=== PATIENT | female | born 1940 | race Caucasian/White ===

== ENCOUNTER 2019-11-16 12:36 | Inpatient (IN) ==
[2019-11-16] MEDS ORDERED: NALOXONE HCL 0.4 MG/1 ML VIAL/CARP IV PRN (15:06)
[2019-11-16] MEDS ORDERED: OXYCODONE HCL IR 5 MG TAB (IMMEDIATE RELEASE) PO PRN (15:06)
[2019-11-16] MEDS ORDERED: bisacodyL 10 MG SUPP PR PRN (15:06)
[2019-11-16] MEDS ORDERED: MoRPHine SULFATE 2 MG/ML CARP IV PRN (15:06)
[2019-11-16] MEDS ORDERED: MAGNESIUM HYDROXIDE SUSP 30 ML UDC PO PRN (15:06)
[2019-11-16] MEDS ORDERED: ONDANSETRON INJ 2 MG/ML 2 ML VIAL IV PRN (15:06)
--- NOTE | 2019-11-16 15:13 | History & Physical Report ---
Date of Service November 16, 2019 Assessment & Plan (1) Hip fracture, left: - Admit to med surg - Check cbc, prp, coags now - Pt was seen in Dr. Marroquin office earlier today where imaging was conducted, ortho has been formally consulted for plans for OR tomorrow. Pt has been walking on the fracture for the past week. - Pain control with tylenol around the clock, IV morphine sulfate 2-4 mg prn, bowel regimen in place - Denies hx of dvt/pe - start anticoagulation after surgical procedure - PT/OT after surgery - Allow diet for now, NPO after midnight - Clindamycin IV preop with allergy to penicillin and sulfas - IVFs at 100 ml/hr overnight for maintenance fluids. - Allow lose dose ativan for anxiety as pt has been through significant social circumstances regarding loss of her pet in the past week. (2) Scoliosis: - Hx of such, hx of thoracic fusion at age 15 but no other issues. (3) Mitral valve prolapse: - No medications, faint murmur heard on exam. - Check echo prior to surgical procedure - Check EKG now for preop clearance (4) Hematochezia: - hx of intermittent passing of dark red clot with bowels as per history, checking guiac, follow H&H. - Consider GI consultation, she denies ever having a colonoscopy even for routine screening. (5) DVT prophylaxis: -teds, scds, no chemical ppx in anticipation of surgery tomorrow CODE: Full Dispo: From home, likely will remain here through the weekend. History of Present Illness Primary Care Provider: Taras Bustamante, III, ANAHI This is a 79 yo F with PMHx of mitral valve prolapse, vertigo and scoliosis who presents to [facility] as a direct admission from Dr. Marroquin's office this morning for a Left hip fracture. The patient notes that she fell 7 days ago, and has been functioning at home with the pain and using tylenol routinely. Over the pt had family to visit, when he son arrived home he also brought his dog, who upon entering the home, immediately attacked one of her pet cats. The inciting event occurred on 11/09/19 after springing out of bed to answer the wad lubricator phone call around 5:30am last Tuesday regarding the cat which had not survived the attack, where she acutely became dizzy and fell to the ground. She reports this was exactly like previous episodes of vertigo. She does not take any medications for vertigo, and reports she can normally control it if she just takes a moment to allow the spinning sensation to stop, and then can go about her day. She denies any LOC, hitting her head, or sustaining other injuries. She has been using a walker in her house since the fall to assist her, but prior to this did not require any ambulatory device. she reports her last BM was yesterday but notes that she occasionally sees dark bloody clot pass. She denies BRBPR or other changes in stool. She cannot quantify the a mount of blood, this but describes this as occurring as frequent as 1-2x per week. She denies pain with passing bowels and does not need to strain. BM occur every 2-3 days on average for her. She has had a poor appetite in the past week. Pt denies n/v/d/c. She does not take any other medication routinely, and denies significant PMHx other than stated above. She drinks a glass of wine occasionally, and has never smoked. Allergies Allergy/AdvReac Type Severity Reaction Status Date / Time Penicillins Allergy Unknown hives and Verified 01/23/15 08:59 swelling Sulfa (Sulfonamide Allergy Unknown hives Verified 01/23/15 08:59 Antibiotics) Home Medications Home Medications Medication Instructions Recorded Confirmed Type acetaminophen [Tylenol Extra 500 mg PO Q6H PRN 11/16/19 11/16/19 History Strength] Past Med/Surg History Social History (Updated 11/16/19 @ 15:19 by Eleonora Vaca PA-C) Preferred Language: Setswana Communication Ability: Effective Painter Hand Required: No Beliefs That Will Affect Care: None Current Living Situation: Spouse current occupational status: retired Other Information That Helps Us Care for You: No Feels Safe at Home: Yes Safety Concerns: Feels Safe At This Time Smoking Status: Never smoker Do You Dip or Chew Tobacco: No ; Second Hand Exposure: No ; Tobacco Cessation Education Requested by Patient: No Hx Alcohol Use: Yes Alcohol type: wine Alcohol Intake Frequency: Rarely Hx Substance Use: No Review of Systems Review of Systems: Constitutional: No fever, sweats or chills Eyes: No diplopia, no worsening or blurred vision ENT: normal hearing, no trouble swallowing Respiratory: No cough, sputum, dyspnea at rest or on exertion Cardiovascular: No chest pain, tightness or palpitations Abdomen: +occasional dark clot as per HPI, No pain, nausea, vomiting, diarrhea or constipation Musculoskeletal: + left joint pain, no calf pain, chronic left knee swelling Neurologic: No weakness, numbness/tingling, or balance problems, has been using a walker as per HPI. Psychiatric: No anxiety or depression Skin: No rash or itch Physical Exam Physical Exam: General: awake, alert, no apparent distress, +thin Head: Normocephalic, atraumatic ENT: PERRL, EOMI, no pharyngeal exudate, mucous membranes moist Chest: Clear to auscultation, on room air, no adventitious breath sounds Cardiac: Regular rate and rhythm, no murmur, no JVD, normal peripheral pulses, good capillary refill Abdominal: NABS x 4 quadrants, soft, nontender to palpation, no rebound, guarding or tenderness Extremities: Normal inspection, + left knee edema(pt reports as chronic), + diff iculty moving the left leg without pain, otherwise no peripheral edema or erythema, calfs nontender to palpation Psych: Normal mood and affect Neuro: AAO x 3, no gross motor deficits, speech is clear, no peripheral sensory deficits Code Status & VTE Plan Code Status FULL Supervising Physician Co-Signing Physician Notes Patient seen and examined, chart reviewed, case discussed with HARSHAD Vaca and I agree with her assessment and plan as documented above. Briefly, patient is a 79yo C female presenting with mildly displaced left femoral neck fracture sustained after a mechanical fall on 11/09/19. On exam she is afebrile, HD stable, anxious in appearance. HEENT - NC/AT, PERRL, EOMI, MMM Heart - +S1/S2, regular, no m/r/g Lungs - CTA Abd - +BS, soft, NT/ND Ext - LLE under pillow, neurovascularly intact Labs and images reviewed. Assessment/Plan - 79yo C female s/p left femoral neck fracture after mechanical fall one week ago -Plan for OR tomorrow -Remainder of plan as above -Will add Hydroxyzine 25mg po qHS PRN - patient reports some insomnia as well as feelings of anxiety. Hopefully this medication will address both issues. PG Care Time/CCT Total # of Minutes Spent Total Time Spent with Patient: Total time spent is greater than 50% in coordination of care (as documented) at patient's floor/unit and/or counseling patient:
[2019-11-16 16:58] LABS: Basophils # (auto) 0.02 K/uL (0-0.2); Basophils % (auto) 0.2 %; Eosinophils # (auto) 0.03 K/uL (0-0.5); Eosinophils % (auto) 0.3 %; Hematocrit (blood only) 39.5 % (37-47); Hemoglobin 13.5 g/dL (12.0-16.0); Immature Granulocytes # (auto) 0.03 K/uL (0.00-0.02); Immature Granulocytes % (auto) 0.3 %; Lymphocytes # (auto) 1.31 K/uL (1.2-3.4); Lymphocytes % (auto) 14.4 %; Mean Corpuscular Hemoglobin 29.9 pg (25-34); Mean Corpuscular Volume 87.6 fL (80-100); Mean Platelet Volume 9.2 fL (7.4-10.4); Monocytes # (auto) 0.77 K/uL (0.11-0.59); Monocytes % (auto) 8.5 %; Neutrophils # (auto) 6.91 K/uL (1.4-6.5); Neutrophils % (auto) 76.3 %; Platelet Count 245 K/uL (130-400); RDW Coefficient of Variation 13.8 % (11.5-14.5); RDW Standard Deviation 44.3 fL (36.4-46.3); Red Blood Count 4.51 M/uL (4.2-5.4); White Blood Count 9.07 K/uL (4.8-10.8)
[2019-11-16 17:06] LABS: Mean Corpuscular Hgb Conc 34.2 g/dL (32-36)
[2019-11-16 17:07] LABS: Prothrombin Time 10.6 Seconds (9.0-12.0)
[2019-11-16 17:17] LABS: Albumin Level 3.7 gm/dl (3.4-5.0); BUN Creatinine Ratio 20.1 (10-20); Calcium 9.3 mg/dl (8.5-10.1); Creatinine Clr Calc Pharmacy 70.1 ml/min; Est GFR (Non-African American) 88.9; Potassium 3.6 mmol/L (3.5-5.1)
[2019-11-16 17:19] LABS: Bilirubin,Total 0.3 mg/dl (0.2-1); Globulin 3.7 gm/dl (2.5-4.0); Total Protein 7.4 gm/dl (6.4-8.2)
[2019-11-16] MEDS: LORazepam 0.5 MG TAB PO PRN (17:59)
[2019-11-16] MEDS: MoRPHine SULFATE 4 MG/ML 1 ML CARP\\VIAL IV PRN (21:03)
[2019-11-16] MEDS: DOCUSATE SODIUM/SENNA 50/8.6MG TAB PO SCH (21:03)
--- NOTE | 2019-11-16 22:02 | XRay Report ---
XR femur LT 2V routine CLINICAL HISTORY: left hip fracture COMPARISON STUDY: Pelvis 02/10/2015. FINDINGS: There is a slightly impacted and displace subcapital fracture of the left femoral neck. No dislocation. The visualized pelvic bones are intact. Calcifications in the deep pelvis likely represe nt uterine fibroids. There is mild osteoarthritis within the left hip. Ddla-[id number] osteoarthriti s within the left knee. The mid to distal left femur appears intact. The femoral neck fracture demons trates up to 7 mm of superior displacement. This also demonstrates 7 mm of posterior displacement. IMPRESSION: Mildly displaced left femoral neck fracture. The mid to distal left femur is intact. ACT 112: Negative or not required by law. Electronically signed by: Mario Milian M.D. 11/16/2019 10:01 PM
[2019-11-16] MEDS: SODIUM CHLORIDE 0.9% 1000ML 1,000 ML IV SCH (23:15)
[2019-11-17] MEDS: MoRPHine SULFATE 4 MG/ML 1 ML CARP\\VIAL IV PRN ×3 (01:22→11:02)
[2019-11-17 05:47] LABS: Hematocrit (blood only) 37.2 % (37-47); Hemoglobin 12.2 g/dL (12.0-16.0); Mean Corpuscular Hemoglobin 29.8 pg (25-34); Mean Corpuscular Hgb Conc 32.8 g/dL (32-36); Mean Corpuscular Volume 90.7 fL (80-100); Platelet Count 228 K/uL (130-400); RDW Coefficient of Variation 13.7 % (11.5-14.5); RDW Standard Deviation 45.6 fL (36.4-46.3)
[2019-11-17] MEDS ORDERED: CLINDAMYCIN 900 MG in DEXTROSE 5% 50 ML IV SCH (06:00)
[2019-11-17 06:08] LABS: INR 1.1 (0.9-1.1)
[2019-11-17 06:12] LABS: Albumin Level 3.3 gm/dl (3.4-5.0); BUN Creatinine Ratio 18.4 (10-20); Creatinine Clr Calc Pharmacy 63.6 ml/min; Est GFR (African American) 99.8; Est GFR (Non-African American) 86.1; Potassium 3.9 mmol/L (3.5-5.1)
[2019-11-17 06:15] LABS: Bilirubin,Total 0.5 mg/dl (0.2-1); Globulin 3.2 gm/dl (2.5-4.0); Total Protein 6.5 gm/dl (6.4-8.2)
--- NOTE | 2019-11-17 07:52 | Electrocardiogram Report ---
Test Reason : Blood Pressure : / mmHG Vent. Rate : 076 BPM Atrial Rate : 076 BPM P-R Int : 190 ms QRS Dur : 090 ms QT Int : 388 ms P-R-T Axes : 073 039 050 degrees QTc Int : 436 ms Normal sinus rhythm with sinus arrhythmia Incomplete right bundle branch block Borderline ECG When compared with ECG of 23-JAN-2015 10:11, No significant change was found Confirmed by Reyes Thomas ([id number]) on 11/17/2019 7:51:55 AM Referred By: Barney Marroquin Confirmed By:Johny Thomas
[2019-11-17] MEDS: bisacodyL 5 MG TABEC PO SCH (09:41)
--- NOTE | 2019-11-17 10:56 | Orthopedic Consultation ---
Date of Consultation November 17, 2019 Assessment & Plan (1) Left displaced femoral neck fracture: The patient is a 72-year-old female with displaced left subcapital femoral neck fracture sustained after a fall from standing height 1 week prior. The patient was medically stabilized on 11/17/2019. I indicated the patient for left total hip arthroplasty. The patient was informed of the risks and benefits of surgery, which include but not limited to infection, bleeding, blood clots, damage to nerves, vessels, bone and soft tissue, dislocation, leg length discrepancy, need for additional surgery and . The patient and family collectively chose to move forward with surgical intervention and informed consent was obtained. History of Present Illness Reason for Consultation: Left hip fracture Attending Physician: Kenrick Hodge History of Present Illness The patient is a 79-year-old female with a past medical history for mitral valve prolapse presented to [facility] office on 11/16/2019 with complaints of acute traumatic left hip pain. Had reports of a fall 7 days prior to office visit. Patient reports difficulty ambulating however managing with assistive device/walker, x- rays taken at the office demonstrated a displaced subcapital femoral neck fracture. The patient was sent directly to [facility] for direct admission and further surgical intervention at this time. Patient denied any associated injuries, denied hitting her head or loss of consciousness. Denies any numbness and tingling down her left lower extremity. The patient is a relatively active 79-year-old. Allergies Allergy/AdvReac Type Severity Reaction Status Date / Time Penicillins Allergy Unknown hives and Verified 01/23/15 08:59 swelling Sulfa (Sulfonamide Allergy Unknown hives Verified 01/23/15 08:59 Antibiotics) Home Medications Home Medications Medication Instructions Recorded Confirmed Type acetaminophen [Tylenol Extra 500 mg PO Q6H PRN 11/16/19 11/16/19 History Strength] Patient History Medical History (Updated 11/17/19 @ 11:52 by Acosta Chowdary MD) History of ASCVD Social History Preferred Language: Citizen Of [place] Communication Ability: Effective Mechanical Insulator Required: No Beliefs That Will Affect Care: None Current Living Situation: Spouse current occupational status: retired Other Information That Helps Us Care for You: No Feels Safe at Home: Yes Safety Concerns: Feels Safe At This Time Smoking Status: Never smoker Do You Dip or Chew Tobacco: No ; Second Hand Exposure: No ; Tobacco Cessation Education Requested by Patient: No Hx Alcohol Use: Yes Alcohol type: wine Alcohol Intake Frequency: Rarely Hx Substance Use: No Review of Systems Review of Systems: All systems reviewed & are unremarkable except as noted in HPI & below Constitutional: as per Subjective / HPI Physical Exam Physical Exam: LLE NVSI +EHL/FHL/TA/GS SILT grossly, +2 DP pulse, compartments soft NT, limited painful range of motion of left hip. Left lower extremity shortened and externally rotated. Constitutional: WD/WN, vitals as above Results & Data Vital Signs (Past 12 Hours) Vital Signs Temp Pulse Resp BP Pulse Ox 11/17/19 07:14 36.7 C 72 16 159/86 H 91 11/17/19 00:13 36.9 C 86 16 144/82 H 93 Diagnostic Findings XR femur LT 2V routine CLINICAL HISTORY: left hip fracture COMPARISON STUDY: Pelvis 02/10/2015. FINDINGS: There is a slightly impacted and displace subcapital fracture of the left femoral neck. No dislocation. The visualized pelvic bones are intact. Calcifications in the deep pelvis likely represent uterine fibroids. There is mild osteoarthritis within the left hip. Sidl-jy-[id number] osteoarthritis within the left knee. The mid to distal left femur appears intact. The femoral neck fracture demonstrates up to 7 mm of superior displacement. This also demonstrates 7 mm of posterior displacement. IMPRESSION: Mildly displaced left femoral neck fracture. The mid to distal left femur is intact.
[2019-11-17] MEDS: SODIUM CHLORIDE 0.9% 1000ML 1,000 ML IV SCH (11:13)
--- NOTE | 2019-11-17 11:55 | Anesthesiology Consultation ---
Date of Service November 17, 2019 Assessment & Plan (1) Mitral valve prolapse: (2) History of thoracic spinal fusion: (3) Depression: Chart Review Chart Review: Acceptable Risk for Surgery and Patient NOT seen in Pre Admission Testing Consults Requested none ASA ASA3 Proposed Anesthesia Anesthesia Type: General and MAC Spinal History Surgery Operation Date: 11/17/19 12:00 Proposed Procedures p Left Total Hip Arthroplasty - aBrney Marroquin DO Height/Weight Height: 5 ft 7 in Weight: 54.7 kg Allergies Allergy/AdvReac Type Severity Reaction Status Date / Time Penicillins Allergy Unknown hives and Verified 01/23/15 08:59 swelling Sulfa (Sulfonamide Allergy Unknown hives Verified 01/23/15 08:59 Antibiotics) Medications Home Medications Medication Instructions Recorded Confirmed Last Taken acetaminophen [Tylenol Extra 500 mg PO Q6H PRN 11/16/19 11/16/19 Unknown Strength] Active Medications Generic Name Dose Route Start Last Admin Trade Name Freq PRN Reason Stop Dose Admin Bisacodyl 5 mg 11/17/19 09:00 11/17/19 09:41 Dulcolax PO 12/17/19 08:59 Not Given DAILY ADE Hydroxyzine HCl 25 mg 11/16/19 23:04 11/17/19 00:12 Vistaril PO 12/16/19 23:03 25 mg HS PRN Administration Insomnia Clindamycin Phosphate 900 mg/ 56 mls @ 112 mls/hr 11/17/19 06:00 11/17/19 06:11 Dextrose IV 11/17/19 18:00 Infused PREOP ADE Infusion Sodium Chloride 1,000 mls @ 80 mls/hr 11/17/19 00:00 11/17/19 11:13 Nss 1000ml IV 11/17/19 23:59 80 mls/hr .[id number] ADE Administration Lorazepam 0.5 mg 11/16/19 15:51 11/16/19 17:59 Ativan PO 12/16/19 15:50 0.5 mg BID PRN Administration Anxiety Morphine Sulfate 4 mg 11/16/19 15:06 11/17/19 11:02 Morphine Sulfate IV 11/30/19 15:05 4 mg Q2H PRN Administration Pain Oxycodone HCl 5 mg 11/16/19 15:06 11/16/19 15:41 Roxicodone Immediate Rel PO 11/30/19 15:05 5 mg Q4H PRN Administration MODERATE Pain (Scale 4,5,6) Senna/Docusate Sodium 2 tab 11/16/19 21:00 11/16/19 21:03 Senokot S PO 12/16/19 20:59 2 tab HS ADE Administration Past Medical History Medical History (Updated 11/17/19 @ 11:52 by Acosta Chowdary MD) History of ASCVD Exercise / Class Metabolic Activity III < 4 Walking/Shop/Light housework Past Anesthesia History No Hx of Anesthesia Complications and No Family Hx of Anesthesia Complications History of PONV No Hx of PONV and No Hx of Motion Sickness Social History Smoking Status: Never smoker Do You Dip or Chew Tobacco: No Hx Alcohol Use: Yes Alcohol type: wine alcohol intake frequency: a few times a week Alcohol Intake Frequency Comment: 1 to 3 a week Hx Substance Use: No substance use type: does not use Physical Exam Vital Signs Last Vital Signs Temp 36.7 C 11/17/19 07:14 Pulse 72 11/17/19 07:14 Resp 16 11/17/19 07:14 BP 159/86 H 11/17/19 07:14 Pulse Ox 91 11/17/19 07:14 Testing Laboratory Results 11/17/19 05:17 11/17/19 05:17 PT 11.0 Seconds (9.0-12.0) 11/17/19 05:17 INR 1.1 (0.9-1.1) 11/17/19 05:17 Blood Type A Negative 11/16/19 16:39 Antibody Screen NEGATIVE 11/16/19 16:39 Electrocardiogram Date: 11/16/19 Findings: + NSR @ (at 78 w/ sinus arrhythmia) and + RBBB (IRBBB) Echocardiogram Date: 11/16/19 EF: 60 LV Function: normal RWMA: + none Valvular Disease: + AI (mild)
[2019-11-17] MEDS ORDERED: ROPIVACAINE 0.5% HCL/PF 150 MG, BUPIVACAINE 0.5% MPF 30 ML, EPINEPHrine 30MG/30ML (OR U... INFIL SCH (12:00)
[2019-11-17] MEDS ORDERED: BUPIVACAINE 0.5 % 5 MG/1 ML PF 10ML VIAL ONE (12:23)
[2019-11-17] MEDS ORDERED: MIDAZOLAM HCL 1 MG/ML 2ML VIAL ONE (12:30)
[2019-11-17] MEDS ORDERED: fentaNYL citrate 100 MCG/2 ML VIAL ONE ×4 (12:32→16:05)
[2019-11-17] MEDS ORDERED: LIDOCAINE HCL 2% 2 ML VIAL/AMP(20MG/ML) INFIL ONE (12:33)
[2019-11-17] MEDS ORDERED: PROPOFOL IV EMULSION 10 MG/ML 20 ML VIAL IV ONE (12:33)
[2019-11-17] MEDS ORDERED: BACITRACIN INJ 50,000 UNIT VIAL ONE (12:43)
[2019-11-17] MEDS ORDERED: ORTHO JOINT ANESTHETIC ONE (12:43)
--- NOTE | 2019-11-17 12:56 | History & Physical Bridge Note ---
Date of Service November 17, 2019 History & Physical Bridge Note I have examined the patient, reviewed the History & Physical and in the interval since the performance of the History & Physical I have noted the following changes of clinical significance: no changes noted
--- NOTE | 2019-11-17 13:00 | Orthopedic Progress Note ---
Date of Service November 17, 2019 Assessment & Plan (1) Left displaced femoral neck fracture: The patient is a 72-year-old femur with displaced left subcapital femoral neck fracture sustained after a fall from standing height 1 week prior. The patient was medically stabilized on 11/17/2019. I indicated the patient for left total hip arthroplasty. The patient was informed of the risks and benefits of surgery, which include but not limited to infection, bleeding, blood clots, damage to nerves, vessels, bone and soft tissue, dislocation, leg length discrepancy, need for additional surgery and . The patient chose to move forward with surgical intervention and informed consent was obtained. Subjective Patient seen and preoperative holding, comfortable, pain well controlled, no acute issues overnight, denies fevers, chills, nausea, vomiting, diarrhea, shortness of breath and chest pain. Review of Systems Review of Systems: All systems reviewed & are unremarkable except as noted in HPI & below Constitutional: as per Subjective / HPI Physical Exam Physical Exam: LLE NVSI +EHL/FHL/TA/GS SILT grossly, +2 DP pulse, compartments soft NT, short and externally rotated. Constitutional: WD/WN, vitals as above Results & Data Vital Signs (Past 12 Hours) Vital Signs Temp Pulse Resp BP Pulse Ox 11/17/19 07:14 36.7 C 72 16 159/86 H 91
[2019-11-17] MEDS ORDERED: CLINDAMYCIN PHOS 300 MG/2 ML VIAL ONE (13:07)
[2019-11-17] MEDS ORDERED: ROCURONIUM BROMIDE 10 MG/ML 5 ML VIAL ONE (13:56)
[2019-11-17] MEDS ORDERED: DEXAMETHASONE SOD INJ 4 MG/ML VIAL ONE (14:00)
[2019-11-17] MEDS ORDERED: ONDANSETRON INJ 2 MG/ML 2 ML VIAL ONE (14:00)
[2019-11-17] MEDS ORDERED: ePHEDrine sulfate 50 MG/ML SYR ONE (14:23)
[2019-11-17] MEDS ORDERED: NEOSTIGMINE METHYLSULFATE 5 MG/5 ML SYR ONE (14:52)
[2019-11-17] MEDS ORDERED: GLYCOPYRROLATE 0.2 MG/ML VIAL ONE (14:52)
--- NOTE | 2019-11-17 15:23 | Post Operative Brief Note ---
Immediate Post Op Note v1 Date of Surgery November 17, 2019 Pre & Post Diagnosis Operation Date: 11/17/19 12:00 Pre-Op Diagnosis: Left hip fracture Post-Op Diagnosis: Left hip fracture I identified the patient and participated in the time-out.: Yes Procedure Operation Date: 11/17/19 12:00 Actual Procedures p Left Total Hip Arthroplasty, Uncemented(Left) - Barney Marroquin DO Surgeon Barney Marroquin DO Diather[employer] Equipment Repairer Lm Gillis Estimated Blood Loss 175 Findings Consistent with Post-Op Diagnosis Fluids 1000 cc LR Specimens femoral head Anesthesia Type General Complications none Disposition Disposition: Recovery Room Overlapping Procedure I was present for: the critical portions of procedure. I was immediately available: during the entire case. Back up surgeon: was not required during procedure.
--- NOTE | 2019-11-17 15:27 | Operative Report ---
Post Operative Report Pre & Post Diagnosis Operation Date: 11/17/19 12:00 Pre-Op Diagnosis: Left hip fracture Post-Op Diagnosis: Left hip fracture I identified the patient and participated in the time-out.: Yes Procedure Operation Date: 11/17/19 12:00 Actual Procedures p Left Total Hip Arthroplasty, Uncemented(Left) - Barney Marroquin DO Surgeon Barney Marroquin, Architectural Practice Manager Jonathan Gillis Estimated Blood Loss 175 Findings Consistent with Post-Op Diagnosis Fluids 1000 cc LR Specimens Femoral head Anesthesia Type General Complications none Disposition Disposition: Recovery Room Indications The patient is a 79-year-old female with a past medical history for mitral valve prolapse presented to [facility] office on 11/16/2019 with complaints of acute traumatic left hip pain. Had reports of a fall 7 days prior to office visit. Patient reports difficulty ambulating however managing with assistive device/walker, x- rays taken at the office demonstrated a displaced subcapital femoral neck fracture. The patient was sent directly to [facility] for direct admission and further surgical intervention at this time. Patient denied any associated injuries, denied hitting her head or loss of consciousness. Denies any numbness and tingling down her left lower extremity. The patient is a relatively active 79-year-old. The patient was medically stabilized on 11/17/2019. I indicated the patient for left total hip arthroplasty. The patient was informed of the risks and benefits of surgery, which include but not limited to infection, bleeding, blood clots, damage to nerves, vessels, bone and soft tissue, dislocation, leg length discrepancy, need for additional surgery and . The patient and family collectively chose to move forward with surgical intervention and informed consent was obtained. Description of Procedure COMPONENTS USED: Ivana Biomet hip system: Acetabulum size 50, femur size 10 extended offset, femoral head 36-3.5, liner 5036, acetabular screw 25 mm x 1. Following induction of adequate spinal anesthesia, the patient was transferred to the OR table and placed in lateral decubitus position with right hip down. The left hip was prepped and draped in the typical sterile fashion. A timeout was performed, patient identified and site jonathan confirmed. Appropriate antibiotics were given. A standard posterolateral/William-Langenbeck incision was made. Subcutaneous tissue was sharply dissected. Electrocautery was utilized for hemostasis. The fascia was incised throughout the length of the wound and retracted with the Charnley retractor. The bursa was taken down and the short external rotators were identified. The piriformis was tagged with #1 Vicryl. The short external rotators and capsule were divided from the posterior aspect of the femur using electrocautery. The posterior capsule was tagged with #1 Vicryl. Both external rotators and posterior capsule were swept posterior and protected, along with protecting the sciatic nerve. The femoral neck fracture was identified and the fracture site exaggerated with flexion and internal rotation of the hip. Once we gained adequate exposure to the femoral neck a femoral cutting guide was utilized for making the appropriate level femoral neck cut with reciprocating saw. Next ,the femoral head was removed, measured and reserved on the back table. Next, attention was turned to the acetabulum. A posterior and anterior offset retractor was placed to gain adequate exposure. Acetabular labrum as well as posterior capsule elements were removed using electrocautery and forceps. Fovea centralis was cleared of all soft tissue. Sequential reaming was performed starting at 44 mm and carried up to a 40 mm and decision was made to proceed with impaction of a 50 mm G7 osteoti cup. This was impacted and held using a single 25 mm bone screw. The trial acetabular liner was placed at this time. Next, attention was turned to the proximal femur where a Bovie and pickup was used to further clear short external rotators from their insertion on the femur. Box osteotome and canal finder was used to gain access to the femoral canal and the lateral reamer on power was used to further open the proximal lateral canal. Sequentially rasping was carried up to a 10 which gave good fit and fill of the proximal femur. A trial reduction was carried out with a extended offset femoral neck component a -3.5 mm femoral head. The trial reduction was stable in all degrees of rotation with no [id number] impingement. The hip was dislocated, trial components were removed and access to the acetabulum was re-established. The trial liner was removed and the cup was irrigated to ensure all debris was removed. The final acetabular liner was inserted and properly seated in the cup. Access to the femur was once more gained and the size 10 femoral stem with extended offset was impacted into position. The hip was once more assessed with the 36-3.5 mm femoral head. Stability was accessed and found to be excellent with equal leg lengths. The hip was dislocated for the last time and the final 36-3.5 ceramic femoral head was impacted in place and the hip was reduced. Range of motion was checked once again and found to be stable. A Betadine soak was performed. After 3 minutes, the hip was once more irrigated with copious sterile saline solution with bacitracin. The mayo-incisional soft tissue was injected utilizing [place] ortho mix which includes a combination of Ropivicaine 0.5% 150mg, Bupivicaine 0.5%/Epinephrine 1:200,000 30ml, Toradol 30mg, Dexamethasone 4mg, Ketamine 10mg, Clonidine 100mcg and NSS 30ml Orthomix solution. The piriformis, external rotators and capsule were repaired to the greater trochanter through bone tunnels using #5 FiberWire. The fascia was closed using #1 Vicryl, subcutaneous tissue was closed using 2-0 Vicryl, and skin was closed with coby. Sterile dressings were applied which included Silverlon dressing. The patient tolerated the procedure well and was transported to PACU in stable condition. Due to the complex nature of the procedure, the entire surgery was performed with the operational assistance of Jonathan Gillis PA-C. The assistant maintenance manager, under direct supervision, was involved in the actual performance of all aspects of the surgical procedure including patient positioning, hemostasis, tissue retraction, instrument management and wound closure. I attest to the content of the Intraoperative Record and any orders documented therein. Any exceptions are noted below.
--- NOTE | 2019-11-17 15:54 | Orthopedic Progress Note ---
Date of Service November 17, 2019 Assessment & Plan (1) Left displaced femoral neck fracture: Status post left total hip arthroplasty for fracture -Clinda x24 -DVT prophylaxis: SCDs, teds, Lovenox 30 mg daily -Weight-bear as tolerated left lower extremity -PT/OT when medically stable -Postoperative x-ray pending -A.m. lab Subjective Patient seen in PACU, still feeling effects of general anesthesia, arousable, pain well controlled, no acute issues. Review of Systems Review of Systems: All systems reviewed & are unremarkable except as noted in HPI & below Constitutional: as per Subjective / HPI Physical Exam Physical Exam: LLE NVSI +EHL/FHL/TA/GS SILT grossly, +2 DP pulse, compartments soft NT, dressing cdi. Abduction pillow in place. Constitutional: WD/WN, vitals as above Results & Data Vital Signs (Past 12 Hours) Vital Signs Temp Pulse Resp BP Pulse Ox 11/17/19 07:14 36.7 C 72 16 159/86 H 91
[2019-11-17] MEDS ORDERED: ATROPINE SULFATE 0.1 MG/ML 10ML SYR IV PRN (15:57)
[2019-11-17] MEDS ORDERED: NALOXONE HCL 0.4 MG/1 ML VIAL/CARP IV PRN ×2 (15:57→17:03)
[2019-11-17] MEDS ORDERED: LABETALOL HCL IV 5 MG/ML 20ML IV PRN (15:57)
[2019-11-17] MEDS ORDERED: ONDANSETRON INJ 2 MG/ML 2 ML VIAL IV PRN ×2 (15:57→17:03)
[2019-11-17] MEDS ORDERED: PROMETHAZINE HCL 12.5 MG in SODIUM CHLORIDE 0.9% 50 ML IV PRN (15:57)
[2019-11-17] MEDS ORDERED: FLUMAZENIL 0.1 MG/1 ML 10 ML VIAL IV PRN (15:57)
[2019-11-17] MEDS ORDERED: ePHEDrine sulfate 50 MG/ML AMP IV PRN (15:57)
[2019-11-17] MEDS: fentaNYL citrate 100 MCG/2 ML VIAL IV PRN ×2 (16:05→16:10)
--- NOTE | 2019-11-17 16:31 | Anesthesiology Progress Note ---
Date of Service November 17, 2019 Anesthesia Post Procedure Vital Signs Vital Signs: Temp Pulse Pulse Resp BP Pulse Ox 11/17/19 16:25 36.6 C 82 16 146/82 H 97 11/17/19 16:15 81 17 142/74 H 98 11/17/19 16:05 92 H 18 141/79 H 97 11/17/19 15:55 77 15 127/74 100 11/17/19 15:49 36.5 C 86 16 127/77 100 11/17/19 07:14 36.7 C 72 16 159/86 H 91 11/17/19 00:13 36.9 C 86 16 144/82 H 93 11/16/19 18:00 96 H 164/82 H Pain Intensity Left Hip: Pain Intensity: 4 Transfer of Care Handoff Completed per policy Notes Mental Status: alert / awake / arousable Patient Amnestic to Procedure: Yes Nausea / Vomiting: adequately controlled Pain: adequately controlled Airway Patency, RR, SpO2: stable & adequate BP & HR: stable & adequate Hydration State: stable & adequate Anesthetic Complications: no major complications apparent
--- NOTE | 2019-11-17 16:46 | XRay Report ---
AP PELVIS, CROSSTABLE LATERAL LEFT HIP History: Left total hip arthroplasty. Left hip fracture. Postop. FINDINGS: The patient is status post a left total hip arthroplasty. The hardware is intact. No fractu re or dislocation. Skin coby are in place. IMPRESSION: Left total hip arthroplasty. No evidence for hardware complication. ACT 112: Negative or not required by law. Electronically signed by: aMrio Milian M.D. 11/17/2019 4:45 PM
[2019-11-17] MEDS ORDERED: MAGNESIUM HYDROXIDE SUSP 30 ML UDC PO PRN (17:03)
[2019-11-17] MEDS ORDERED: bisacodyL 10 MG SUPP PR PRN (17:03)
[2019-11-17] MEDS ORDERED: HYDROmorphone INJ 0.5 MG/0.5 ML SYR IV PRN (17:03)
[2019-11-17] MEDS ORDERED: METOCLOPRAMIDE HCL INJ 5 MG/ML 2 ML VIAL IV PRN (17:03)
--- NOTE | 2019-11-17 17:24 | Hospitalist Progress Note ---
Date of Service November 17, 2019 Assessment & Plan (1) Hip fracture, left: * Occurred 7 days ago following episode of vertigo with fall from standing height when standing quickly. Imaging with displaced left subcapital femoral neck fracture sustained after a fall from standing * POD#0 s/p LEFT TKA with Dr. Marroquin. EBL 175mL. * Pre-op h/h 12.2/37.2. INR 1.1. * PT/OT/CM * Monitor CBC in AM * Lovenox SQ for DVT prophylaxis post operatively * Ativan prn anxiety given recent loss of animal in the past week (2) Scoliosis: * Hx of such, hx of thoracic fusion at age 15 but no other issues. (3) Mitral valve prolapse: * H/o. No medications -- faint murmur heard on exam. * ECHO with normal LV size and wall thickness, LVEF 60-65%, normal RV size and function. Trace MR. Mild AR. Normal estimated CVP * MATEUS NSR with sinus arrhthmia, incomplete RBBB, 76bpm -- unchanged from MATEUS January 2015 (4) Hematochezia: * hx of intermittent passing of dark red clot with bowels as per history. No history of colonoscopy or FIT testing * fecal occult to be collected * monitor h/h -- currently stable at 12.2/37.2 * Monitor CBC * If + fecal occult-- consider GI consultation (5) DVT prophylaxis: * teds, scds * Initiated lovenox following surgery Dispo: From home, likely will remain here through the weekend. (6) Insomnia: Supervising Physician Co-Signing Physician Notes Attending Attestation: Chart reviewed in detail, care plan d/w HARSHAD Domínguez. I agree w/ the reid components of her documentation except she had ORIF for left hip fracture NOT TKR as stated in her note. Monitor for blood per rectum. It is chronic - hemorrhoids? other? Outpatient f/u will be needed for this. Pt wishing to return home following discharge. Needs 25-OH vit D level checked and outpatient DEXA. Recheck labs in am. PT, OT, dispo planning. Kenrick Hodge MD Subjective Patient evaluated this morning. States she fell between the holidays and was attempting to see i the pain subsided prior to coming in for surgical intervention. She confirms she is having pain with ambulation. Denies numbness/tingling. She states it occurred when she stood up quickly from a lying position. She states she does have a history of vertigo, and confirms that she had been seen by Audiology and given a trial of hearing aids but she did not bring them in. When questioned regarding follow up with PT/ENT regarding therapy to help with vertigo, she states she has not had any follow up as of yet. She states she has had some bloody stools over the past 12-13 years, which occur approximately once a week when she gets an "uneasy stomach". She denies a history of Crohns/colitis, and has never had EGD/Colonscopy. She states sometimes it appears to be dark blood and sometimes it is bright red. Denies any known history of hemorrhoids. No BM as of yet, but instructed to alert nursing if she has a BM to check for blood. Denies any fevers, chills, chest pain, shortness of breath, abdominal pain, nausea/vomiting, diarrhea. Review of Systems Review of Systems: All systems reviewed & are unremarkable except as noted in HPI & below Constitutional: no fever and no chills Ear, Nose, Mouth, Throat: no sore throat and no dysphagia Respiratory: no cough and no dyspnea Cardiovascular: no chest pain and no palpitations Gastrointestinal: + blood in stools and + melena; no abdominal pain, no nausea and no vomiting Genitourinary: no dysuria and no urinary frequency Musculoskeletal: hip pain Integumentary: no rash and no lesions Physical Exam Constitutional: WD/WN, vitals as above no acute distress uncomfortable appearing Eyes: + anicteric sclerae and PERRL Neck: trachea midline, no thyromegaly Respiratory: normal respiratory effort, lungs clear to auscultation Cardiovascular: Rate/Rhythm: regular rate and regular rhythm Heart Sounds: + murmur (1-2 systolic) Gastrointestinal (Abdomen): normal bowel sounds, soft, nontender, no hepatosplenomegaly Musculoskeletal: no cyanosis or clubbing, extremities motor strength 5/5 pain with ROM left hip NVI intact Skin: no rashes, warm and dry Neurologic: patellar DTR's 2+ bilat, sensation intact Results & Data Vital Signs (Past 12 Hours) Vital Signs Temp Pulse Pulse Resp BP Pulse Ox 11/17/19 16:54 61 16 125/76 97 11/17/19 16:40 74 14 134/75 97 11/17/19 16:25 36.6 C 82 16 146/82 H 97 11/17/19 16:15 81 17 142/74 H 98 11/17/19 16:05 92 H 18 141/79 H 97 11/17/19 15:55 77 15 127/74 100 11/17/19 15:49 36.5 C 86 16 127/77 100 11/17/19 07:14 36.7 C 72 16 159/86 H 91 Laboratory Results 11/17/19 11/17/19 11/17/19 Range/Units 05:17 05:17 05:17 WBC 6.90 (4.8-10.8) K/uL RBC 4.10 L (4.2-5.4) M/uL Hgb 12.2 (12.0-16.0) g/dL Hct 37.2 (37-47) % MCV 90.7 (80-100) fL MCH 29.8 (25-34) pg MCHC 32.8 (32-36) g/dL RDW Std Deviation 45.6 (36.4-46.3) fL RDW Coeff of Lindsay 13.7 (11.5-14.5) % Plt Count 228 (130-400) K/uL MPV 9.0 (7.4-10.4) fL PT 11.0 (9.0-12.0) Seconds INR 1.1 (0.9-1.1) Sodium 140 (136-145) mmol/L Potassium 3.9 (3.5-5.1) mmol/L Chloride 105 (98-107) mmol/L Carbon Dioxide 31 (21-32) mmol/L Anion Gap 4.0 (3-11) BUN 12 (7-18) mg/dl Creatinine 0.64 (0.6-1.2) mg/dl Est Cr Clr Drug Dosing 63.6 ml/min Est GFR ( Amer) 99.8 Est GFR (Non-Af Amer) 86.1 BUN/Creatinine Ratio 18.4 (10-20) Glucose 96 (70-99) mg/dl Calcium 9.0 (8.5-10.1) mg/dl Total Bilirubin 0.5 (0.2-1) mg/dl AST 17 (15-37) U/L ALT 24 (12-78) U/L Alkaline Phosphatase 73 (45-117) U/L Total Protein 6.5 (6.4-8.2) gm/dl Albumin 3.3 L (3.4-5.0) gm/dl Globulin 3.2 (2.5-4.0) gm/dl Albumin/Globulin Ratio 1.0 (0.9-2) Blood Type Antibody Screen 11/16/19 Range/Units 16:39 WBC (4.8-10.8) K/uL RBC (4.2-5.4) M/uL Hgb (12.0-16.0) g/dL Hct (37-47) % MCV (80-100) fL MCH (25-34) pg MCHC (32-36) g/dL RDW Std Deviation (36.4-46.3) fL RDW Coeff of Lindsay (11.5-14.5) % Plt Count (130-400) K/uL MPV (7.4-10.4) fL PT (9.0-12.0) Seconds INR (0.9-1.1) Sodium (136-145) mmol/L Potassium (3.5-5.1) mmol/L Chloride (98-107) mmol/L Carbon Dioxide (21-32) mmol/L Anion Gap (3-11) BUN (7-18) mg/dl Creatinine (0.6-1.2) mg/dl Est Cr Clr Drug Dosing ml/min Est GFR ( Amer) Est GFR (Non-Af Amer) BUN/Creatinine Ratio (10-20) Glucose (70-99) mg/dl Calcium (8.5-10.1) mg/dl Total Bilirubin (0.2-1) mg/dl AST (15-37) U/L ALT (12-78) U/L Alkaline Phosphatase (45-117) U/L Total Protein (6.4-8.2) gm/dl Albumin (3.4-5.0) gm/dl Globulin (2.5-4.0) gm/dl Albumin/Globulin Ratio (0.9-2) Blood Type A Negative Antibody Screen NEGATIVE PG Care Time/CCT Total # of Minutes Spent Total Time Spent with Patient: Total time spent is greater than 50% in coordination of care (as documented) at patient's floor/unit and/or counseling patient:
[2019-11-17] MEDS ORDERED: SODIUM CHLORIDE 0.9% 1000ML 1,000 ML IV SCH (17:30)
[2019-11-17] MEDS: LORazepam 0.5 MG TAB PO PRN (18:10)
[2019-11-17] MEDS: DOCUSATE SODIUM/SENNA 50/8.6MG TAB PO SCH (21:34)
[2019-11-17] MEDS: DOCUSATE SODIUM 100 MG CAP PO SCH (22:07)
[2019-11-17] MEDS: SENNA 8.6 MG TAB PO SCH (22:07)
[2019-11-17] MEDS: CLINDAMYCIN 600 MG in DEXTROSE 5% 50 ML IV SCH (22:08)
[2019-11-17] MEDS: OXYCODONE HCL IR 5 MG TAB (IMMEDIATE RELEASE) PO PRN (23:56)
[2019-11-18] MEDS: CLINDAMYCIN 600 MG in DEXTROSE 5% 50 ML IV SCH (05:29)
[2019-11-18 05:39] LABS: Basophils # (auto) 0.01 K/uL (0-0.2); Basophils % (auto) 0.1 %; Hematocrit (blood only) 30.9 % (37-47); Hemoglobin 10.2 g/dL (12.0-16.0); Immature Granulocytes # (auto) 0.03 K/uL (0.00-0.02); Immature Granulocytes % (auto) 0.3 %; Lymphocytes % (auto) 8.8 %; Mean Corpuscular Hemoglobin 29.1 pg (25-34); Mean Corpuscular Volume 88.3 fL (80-100); Mean Platelet Volume 8.9 fL (7.4-10.4); Monocytes # (auto) 0.99 K/uL (0.11-0.59); Monocytes % (auto) 9.7 %; Neutrophils # (auto) 8.31 K/uL (1.4-6.5); Neutrophils % (auto) 81.1 %; Platelet Count 224 K/uL (130-400); RDW Coefficient of Variation 13.6 % (11.5-14.5); RDW Standard Deviation 43.8 fL (36.4-46.3); White Blood Count 10.24 K/uL (4.8-10.8)
[2019-11-18 06:03] LABS: Albumin Level 2.8 gm/dl (3.4-5.0); BUN Creatinine Ratio 18.7 (10-20); Calcium 8.5 mg/dl (8.5-10.1); Creatinine Clr Calc Pharmacy 71.4 ml/min; Est GFR (African American) 103.6; Est GFR (Non-African American) 89.4; Potassium 4.3 mmol/L (3.5-5.1)
[2019-11-18 06:06] LABS: Albumin Globulin Ratio 0.9 (0.9-2); Bilirubin,Total 0.5 mg/dl (0.2-1); Total Protein 5.8 gm/dl (6.4-8.2)
[2019-11-18] MEDS: OXYCODONE HCL IR 5 MG TAB (IMMEDIATE RELEASE) PO PRN ×4 (06:07→21:19)
--- NOTE | 2019-11-18 06:48 | Orthopedic Progress Note ---
Date of Service November 18, 2019 Assessment & Plan (1) Left displaced femoral neck fracture: POD #1 s/p left total hip arthroplasty for fracture -Clinda x24 -DVT prophylaxis: SCDs, teds, Lovenox 30 mg daily -Weight-bear as tolerated left lower extremity -PT/OT when medically stable -xray left total hip arthroplasty no evidence of hardware complications. Subjective POD #1 s/p Left KIMMY she is sitting up reading in bed this am, denies CP/SOB. denies fever/chills Physical Exam Physical Exam: Vital Signs Temp Pulse Pulse Resp BP Pulse Ox 11/18/19 03:05 36.9 C 98 H 16 126/71 92 11/17/19 22:53 36.8 C 89 16 108/67 91 11/17/19 20:29 36.9 C 87 17 114/67 96 11/17/19 19:29 36.4 C L 91 H 17 115/70 97 11/17/19 18:08 86 16 138/58 L 98 11/17/19 17:43 36.4 C L 82 17 125/78 96 11/17/19 17:10 36.4 C L 84 16 147/76 H 93 11/17/19 16:54 61 16 125/76 97 11/17/19 16:40 74 14 134/75 97 11/17/19 16:25 36.6 C 82 16 146/82 H 97 11/17/19 16:15 81 17 142/74 H 98 11/17/19 16:05 92 H 18 141/79 H 97 11/17/19 15:55 77 15 127/74 100 11/17/19 15:49 36.5 C 86 16 127/77 100 11/17/19 07:14 36.7 C 72 16 159/86 H 91 Intake and Output 11/17/19 11/17/19 11/18/19 14:59 22:59 06:59 Intake Total 957.333 / 3705.333 1640 / 3705.333 1108 / 3705.333 Output Total 1974 77 / 1974 Balance 357.333 / 1730.333 865 / 1730.333 508 / 1730.333 Intake: IV 957.333 / 2065.333 1108 / 2065.333 Cleocin 600 mg In D5w 50 ml @ 108 / 108 100 mls/hr IV Q8H ADE Rx#: [id number] Nss 1000ML 1,0 00 ml @ 80 mls/hr 957.333 / 0490.733 1885 / 1957.333 IV .[id number] SC H Rx#:[id number] IV Perioperative 1200 / 1200 Oral 0 / 440 440 / 440 Output: Urine 600 / 1800 600 / 1800 600 / 1800 Estimated Blood Loss 175 / 175 Other: Weight 54.7 kg Patient Weight 11/18/19 06:59 Weight 54.7 kg Constitutional: WD/WN, vitals as above no acute distress Musculoskeletal: left hip: silverlon intact, no surrounding erythema, minimal thigh tenderness, calf SNT, NVDI. able to wiggle toes/ankle without difficulty. Results & Data Vital Signs (Past 12 Hours) Vital Signs Temp Pulse Resp BP Pulse Ox 11/18/19 03:05 36.9 C 98 H 16 126/71 92 11/17/19 22:53 36.8 C 89 16 108/67 91 11/17/19 20:29 36.9 C 87 17 114/67 96 11/17/19 19:29 36.4 C L 91 H 17 115/70 97 Laboratory Results Laboratory Results WBC 10.24 K/uL (4.8-10.8) 11/18/19 05:21 RBC 3.50 M/uL (4.2-5.4) L 11/18/19 05:21 Hgb 10.2 g/dL (12.0-16.0) L 11/18/19 05:21 Hct 30.9 % (37-47) L 11/18/19 05:21 MCV 88.3 fL (80-100) 11/18/19 05:21 MCH 29.1 pg (25-34) 11/18/19 05:21 MCHC 33.0 g/dL (32-36) 11/18/19 05:21 RDW Std Deviation 43.8 fL (36.4-46.3) 11/18/19 05:21 RDW Coeff of Lindsay 13.6 % (11.5-14.5) 11/18/19 05:21 Plt Count 224 K/uL (130-400) 11/18/19 05:21 MPV 8.9 fL (7.4-10.4) 11/18/19 05:21 Immature Gran % (Auto) 0.3 % 11/18/19 05:21 Neut % (Auto) 81.1 % 11/18/19 05:21 Lymph % (Auto) 8.8 % 11/18/19 05:21 [place] % (Auto) 9.7 % 11/18/19 05:21 Eos % (Auto) 0.0 % 11/18/19 05:21 Baso % (Auto) 0.1 % 11/18/19 05:21 Immature Gran # (Auto) 0.03 K/uL (0.00-0.02) H 11/18/19 05:21 Neut # (Auto) 8.31 K/uL (1.4-6.5) H 11/18/19 05:21 Lymph # (Auto) 0.90 K/uL (1.2-3.4) L 11/18/19 05:21 [place] # (Auto) 0.99 K/uL (0.11-0.59) H 11/18/19 05:21 Eos # (Auto) 0.00 K/uL (0-0.5) 11/18/19 05:21 Baso # (Auto) 0.01 K/uL (0-0.2) 11/18/19 05:21 PT 11.0 Seconds (9.0-12.0) 11/17/19 05:17 INR 1.1 (0.9-1.1) 11/17/19 05:17 Sodium 138 mmol/L (136-145) 11/18/19 05:21 Potassium 4.3 mmol/L (3.5-5.1) 11/18/19 05:21 Chloride 103 mmol/L (98-107) 11/18/19 05:21 Carbon Dioxide 33 mmol/L (21-32) H 11/18/19 05:21 Anion Gap 2.0 (3-11) L 11/18/19 05:21 BUN 11 mg/dl (7-18) 11/18/19 05:21 Creatinine 0.57 mg/dl (0.6-1.2) L 11/18/19 05:21 Est Cr Clr Drug Dosing 71.4 ml/min 11/18/19 05:21 Est GFR ( Amer) 103.6 11/18/19 05:21 Est GFR (Non-Af Amer) 89.4 11/18/19 05:21 BUN/Creatinine Ratio 18.7 (10-20) 11/18/19 05:21 Glucose 110 mg/dl (70-99) H 11/18/19 05:21 Calcium 8.5 mg/dl (8.5-10.1) 11/18/19 05:21 Total Bilirubin 0.5 mg/dl (0.2-1) 11/18/19 05:21 AST 21 U/L (15-37) 11/18/19 05:21 ALT 22 U/L (12-78) 11/18/19 05:21 Alkaline Phosphatase 64 U/L (45-117) 11/18/19 05:21 Total Protein 5.8 gm/dl (6.4-8.2) L 11/18/19 05:21 Albumin 2.8 gm/dl (3.4-5.0) L 11/18/19 05:21 Globulin 3.0 gm/dl (2.5-4.0) 11/18/19 05:21 Albumin/Globulin Ratio 0.9 (0.9-2) 11/18/19 05:21 Blood Type A Negative 11/16/19 16:39 Antibody Screen NEGATIVE 11/16/19 16:39 Diagnostic Findings AP PELVIS, CROSSTABLE LATERAL LEFT HIP History: Left total hip arthroplasty. Left hip fracture. Postop. FINDINGS: The patient is status post a left total hip arthroplasty. The hardware is intact. No fracture or dislocation. Skin coby are in place. IMPRESSION: Left total hip arthroplasty. No evidence for hardware complication.
[2019-11-18] MEDS: DOCUSATE SODIUM 100 MG CAP PO SCH ×2 (08:25→21:06)
[2019-11-18] MEDS: ENOXAPARIN INJ 30 MG/0.3 ML SYR SQ SCH (08:26)
[2019-11-18] MEDS: bisacodyL 5 MG TABEC PO SCH (08:26)
[2019-11-18] MEDS: MULTIVITAMIN TAB PO SCH (08:26)
--- NOTE | 2019-11-18 12:52 | Hospitalist Progress Note ---
Date of Service November 18, 2019 Assessment & Plan (1) Hip fracture, left: * Occurred 7 days ago following episode of vertigo with fall from standing height when standing quickly. Imaging with displaced left subcapital femoral neck fracture sustained after a fall from standing * POD#1 s/p LEFT TKA with Dr. Marroquin. EBL 175mL. * Pre-op h/h 12.2/37.2. INR 1.1. * PT/OT/CM * H/h 10.2/30.9 today -- likely secondary to blood loss during surgery * Monitor CBC in AM * Lovenox SQ for DVT prophylaxis post operatively * Ativan prn anxiety given recent loss of animal in the past week. * Vistaril for insomnia/anxiety--> patient would like several of these as outpatient for short term insomnia/anxiety-- discussed benefits of initiating SSRI as outpatient if symptoms persist. Would not like to initiate at this current time. (2) Scoliosis: * Hx of such, hx of thoracic fusion at age 15 but no other issues. (3) Mitral valve prolapse: * H/o. No medications -- faint murmur heard on exam. * ECHO with normal LV size and wall thickness, LVEF 60-65%, normal RV size and function. Trace MR. Mild AR. Normal estimated CVP * ECG NSR with sinus arrhthmia, incomplete RBBB, 76bpm -- unchanged from ECG January 2015 (4) Hematochezia: * hx of intermittent passing of dark red clot with bowels as per history. No history of colonoscopy or FIT testing * fecal occult to be collected * monitor h/h -- currently stable at 10.2/30.9 * Monitor CBC * If + fecal occult-- consider GI consultation (5) Insomnia: * Ativan prn as above * Vistaril for sleep/anxiety (6) Vertigo: * Chronic. Patient newly diagnosed hearing loss, bilateral hearing aides. Did not bring to hospital. * To have outpatient therapy vs ENT follow up for further workup * ECHO as above (7) DVT prophylaxis: * teds, scds * Initiated lovenox following surgery Dispo: From home, likely discharge home in AM with outpatient physical therapy Supervising Physician Co-Signing Physician Notes Attending Attestation: Chart reviewed in detail, care plan d/w HARSHAD Domínguez. I agree w/ the reid components of her documentation except she had ORIF for left hip fracture NOT TKR as stated in her note. Pt now POD#1 from ORIF of left hip fracture. Pt wishing to return home following discharge. Needs 25-OH vit D level checked - ideally before d/c. Outpatient DEXA also recommended. Kenrick Hodge MD Subjective Patient initially requesting to be discharged today, however does admit to some significant pain in her left hip that has been tolerable with pain medications. She states she feels bad asking for some and believes that contributes to her increased pain today. She states she was up with physical therapy and was able to walk the halls with her walker, as she had been using prior to admission for the past week. She states this went well. Slept well overnight. Still with minimal appetite, however she states she did have chicken noodle soup last night that her daughter brought in from brother's pizza in [place]. No BM currently, but patient denies feeling constipated as she goes every couple of days. She plans to return home with outpatient therapy, as she already has walk in shower and railing for significant other's hip replacement in the past and has the tools to succeed at home. After having the increased pain, patient agreeable to continue to monitor overnight and hopeful discharge in the morning. Review of Systems Review of Systems: All systems reviewed & are unremarkable except as noted in HPI & below Constitutional: + anorexia; no fever and no chills Respiratory: no cough and no dyspnea Cardiovascular: no chest pain, no palpitations and no edema Gastrointestinal: + blood in stools and + melena; no abdominal pain, no nausea and no vomiting Genitourinary: no dysuria and no hematuria Musculoskeletal: hip pain Integumentary: no rash and no lesions Psychiatric: + anxiety insomnia Physical Exam Constitutional: WD/WN, vitals as above no acute distress Eyes: + anicteric sclerae and PERRL Neck: trachea midline, no thyromegaly Respiratory: normal respiratory effort, lungs clear to auscultation Cardiovascular: Rate/Rhythm: regular rate and regular rhythm Heart Sounds: + murmur (1-2 systolic) Gastrointestinal (Abdomen): normal bowel sounds, soft, nontender, no hepatosplenomegaly Musculoskeletal: Head/Neck/Chest: normocephalic and head atraumatic pain with resistance dressing to left hip c/d/i 2+ dp, pt pulses bilaterally 4+ strength to LLE, 5+ RLE Skin: no rashes, warm and dry Neurologic: patellar DTR's 2+ bilat, sensation intact Results & Data Vital Signs (Past 12 Hours) Vital Signs Temp Pulse Resp BP Pulse Ox 11/18/19 12:32 37.1 C 93 H 16 109/62 97 11/18/19 11:24 95 11/18/19 07:47 36.7 C 84 16 131/73 93 11/18/19 03:05 36.9 C 98 H 16 126/71 92 Laboratory Results 11/18/19 11/18/19 Range/Units 05:21 05:21 WBC 10.24 (4.8-10.8) K/uL RBC 3.50 L (4.2-5.4) M/uL Hgb 10.2 L (12.0-16.0) g/dL Hct 30.9 L (37-47) % MCV 88.3 (80-100) fL MCH 29.1 (25-34) pg MCHC 33.0 (32-36) g/dL RDW Std Deviation 43.8 (36.4-46.3) fL RDW Coeff of Lindsay 13.6 (11.5-14.5) % Plt Count 224 (130-400) K/uL MPV 8.9 (7.4-10.4) fL Immature Gran % (Auto) 0.3 % Neut % (Auto) 81.1 % Lymph % (Auto) 8.8 % Bradley % (Auto) 9.7 % Eos % (Auto) 0.0 % Baso % (Auto) 0.1 % Immature Gran # (Auto) 0.03 H (0.00-0.02) K/uL Neut # (Auto) 8.31 H (1.4-6.5) K/uL Lymph # (Auto) 0.90 L (1.2-3.4) K/uL Bradley # (Auto) 0.99 H (0.11-0.59) K/uL Eos # (Auto) 0.00 (0-0.5) K/uL Baso # (Auto) 0.01 (0-0.2) K/uL Sodium 138 (136-145) mmol/L Potassium 4.3 (3.5-5.1) mmol/L Chloride 103 (98-107) mmol/L Carbon Dioxide 33 H (21-32) mmol/L Anion Gap 2.0 L (3-11) BUN 11 (7-18) mg/dl Creatinine 0.57 L (0.6-1.2) mg/dl Est Cr Clr Drug Dosing 71.4 ml/min Est GFR ( Amer) 103.6 Est GFR (Non-Af Amer) 89.4 BUN/Creatinine Ratio 18.7 (10-20) Glucose 110 H (70-99) mg/dl Calcium 8.5 (8.5-10.1) mg/dl Total Bilirubin 0.5 (0.2-1) mg/dl AST 21 (15-37) U/L ALT 22 (12-78) U/L Alkaline Phosphatase 64 (45-117) U/L Total Protein 5.8 L (6.4-8.2) gm/dl Albumin 2.8 L (3.4-5.0) gm/dl Globulin 3.0 (2.5-4.0) gm/dl Albumin/Globulin Ratio 0.9 (0.9-2) Diagnostic Findings AP PELVIS, CROSSTABLE LATERAL LEFT HIP History: Left total hip arthroplasty. Left hip fracture. Postop. FINDINGS: The patient is status post a left total hip arthroplasty. The hardware is intact. No fracture or dislocation. Skin coby are in place. IMPRESSION: Left total hip arthroplasty. No evidence for hardware complication. PG Care Time/CCT Total # of Minutes Spent Total Time Spent with Patient: Total time spent is greater than 50% in coordination of care (as documented) at patient's floor/unit and/or counseling patient:
[2019-11-18] MEDS: ACETAMINOPHEN 500 MG TAB PO PRN (19:29)
[2019-11-18] MEDS: SENNA 8.6 MG TAB PO SCH (21:06)
[2019-11-19 06:15] LABS: Basophils # (auto) 0.01 K/uL (0-0.2); Basophils % (auto) 0.1 %; Eosinophils # (auto) 0.03 K/uL (0-0.5); Eosinophils % (auto) 0.3 %; Hematocrit (blood only) 29.7 % (37-47); Immature Granulocytes # (auto) 0.04 K/uL (0.00-0.02); Immature Granulocytes % (auto) 0.4 %; Lymphocytes # (auto) 0.96 K/uL (1.2-3.4); Lymphocytes % (auto) 9.4 %; Mean Corpuscular Hemoglobin 29.8 pg (25-34); Mean Corpuscular Hgb Conc 33.7 g/dL (32-36); Mean Corpuscular Volume 88.4 fL (80-100); Mean Platelet Volume 9.3 fL (7.4-10.4); Monocytes # (auto) 0.87 K/uL (0.11-0.59); Monocytes % (auto) 8.5 %; Neutrophils # (auto) 8.29 K/uL (1.4-6.5); Neutrophils % (auto) 81.3 %; Platelet Count 217 K/uL (130-400); RDW Coefficient of Variation 13.9 % (11.5-14.5); RDW Standard Deviation 45.1 fL (36.4-46.3); Red Blood Count 3.36 M/uL (4.2-5.4)
[2019-11-19 06:48] LABS: Albumin Level 2.8 gm/dl (3.4-5.0); BUN Creatinine Ratio 20.8 (10-20); Calcium 8.5 mg/dl (8.5-10.1); Est GFR (African American) 104.9; Est GFR (Non-African American) 90.5; Potassium 3.8 mmol/L (3.5-5.1)
[2019-11-19 06:59] LABS: Albumin Globulin Ratio 0.9 (0.9-2); Bilirubin,Total 0.6 mg/dl (0.2-1); Thyroid Stimulating Hormone 0.252 uIu/ml (0.300-4.500); Total Protein 5.8 gm/dl (6.4-8.2)
[2019-11-19 07:12] LABS: T4 Free Thyroxine 2.04 ng/dl (0.8-1.6)
[2019-11-19] MEDS: DOCUSATE SODIUM 100 MG CAP PO SCH (08:21)
[2019-11-19] MEDS: MULTIVITAMIN TAB PO SCH (08:21)
[2019-11-19] MEDS: ENOXAPARIN INJ 30 MG/0.3 ML SYR SQ SCH (08:21)
[2019-11-19] MEDS: bisacodyL 5 MG TABEC PO SCH (08:22)
--- NOTE | 2019-11-19 08:54 | Orthopedic Progress Note ---
Date of Service November 19, 2019 Assessment & Plan (1) Left displaced femoral neck fracture: POD #2 s/p left total hip arthroplasty for fracture -Clinda x24, then discontinue -DVT prophylaxis: SCDs, teds, Lovenox 30 mg daily -Weight-bear as tolerated left lower extremity -PT/OT when medically stable -xray left total hip arthroplasty no evidence of hardware complications. -a.m. labs: Hgb 10.0 -DC planning-patient hoping to go home soon with home health services. We will see how she is progressing with her physical therapy today. Supervising Physician Co-Signing Physician Notes Patient seen and examined, agree with above assessment and plan. Subjective Postop day 2 status post left total hip arthroplasty Patient currently sitting up in bed finishing her breakfast. States she feels weak today but states she has not had an appetite. She states that even prior to being admitted into the hospital, she has not had a good appetite. She relates it to a traumatic experience she had a [place] with a few of her pets where 1 of her cats had . She states she has not been eating her normal meals since that time. Currently her pain is controlled. She denies any shortness of breath, chest pain, lightheadedness. She denies any abdominal discomfort. Review of Systems Review of Systems: All systems reviewed & are unremarkable except as noted in HPI & below Constitutional: as per Subjective / HPI Physical Exam Physical Exam: Silverlon dressing is clean and intact. No overt drainage noted in the window. Thigh has some swelling but is soft and nontender. Calves are soft, nontender. Neurovascular is intact. Toes are mobile. She has good dorsiflexion and plantarflexion of the foot and leg lengths appear equal. LLE NVSI +EHL/FHL/TA/GS SILT grossly, +2 DP pulse, compartments soft NT, dressing cdi. Constitutional: WD/WN, vitals as above Results & Data Vital Signs (Past 12 Hours) Vital Signs Temp Pulse Pulse Resp BP Pulse Ox 11/19/19 07:40 36.9 C 105 H 18 135/85 92 11/18/19 22:50 37 C 88 16 140/64 92 Laboratory Results Laboratory Results WBC 10.20 K/uL (4.8-10.8) 11/19/19 05:24 RBC 3.36 M/uL (4.2-5.4) L 11/19/19 05:24 Hgb 10.0 g/dL (12.0-16.0) L 11/19/19 05:24 Hct 29.7 % (37-47) L 11/19/19 05:24 MCV 88.4 fL (80-100) 11/19/19 05:24 MCH 29.8 pg (25-34) 11/19/19 05:24 MCHC 33.7 g/dL (32-36) 11/19/19 05:24 RDW Std Deviation 45.1 fL (36.4-46.3) 11/19/19 05:24 RDW Coeff of Lindsay 13.9 % (11.5-14.5) 11/19/19 05:24 Plt Count 217 K/uL (130-400) 11/19/19 05:24 MPV 9.3 fL (7.4-10.4) 11/19/19 05:24 Immature Gran % (Auto) 0.4 % 11/19/19 05:24 Neut % (Auto) 81.3 % 11/19/19 05:24 Lymph % (Auto) 9.4 % 11/19/19 05:24 [place] % (Auto) 8.5 % 11/19/19 05:24 Eos % (Auto) 0.3 % 11/19/19 05:24 Baso % (Auto) 0.1 % 11/19/19 05:24 Immature Gran # (Auto) 0.04 K/uL (0.00-0.02) H 11/19/19 05:24 Neut # (Auto) 8.29 K/uL (1.4-6.5) H 11/19/19 05:24 Lymph # (Auto) 0.96 K/uL (1.2-3.4) L 11/19/19 05:24 [place] # (Auto) 0.87 K/uL (0.11-0.59) H 11/19/19 05:24 Eos # (Auto) 0.03 K/uL (0-0.5) 11/19/19 05:24 Baso # (Auto) 0.01 K/uL (0-0.2) 11/19/19 05:24 PT 11.0 Seconds (9.0-12.0) 11/17/19 05:17 INR 1.1 (0.9-1.1) 11/17/19 05:17 Sodium 138 mmol/L (136-145) 11/19/19 05:24 Potassium 3.8 mmol/L (3.5-5.1) 11/19/19 05:24 Chloride 103 mmol/L (98-107) 11/19/19 05:24 Carbon Dioxide 31 mmol/L (21-32) 11/19/19 05:24 Anion Gap 4.0 (3-11) 11/19/19 05:24 BUN 12 mg/dl (7-18) 11/19/19 05:24 Creatinine 0.55 mg/dl (0.6-1.2) L 11/19/19 05:24 Est Cr Clr Drug Dosing 74.0 ml/min 11/19/19 05:24 Est GFR ( Amer) 104.9 11/19/19 05:24 Est GFR (Non-Af Amer) 90.5 11/19/19 05:24 BUN/Creatinine Ratio 20.8 (10-20) H 11/19/19 05:24 Glucose 104 mg/dl (70-99) H 11/19/19 05:24 Calcium 8.5 mg/dl (8.5-10.1) 11/19/19 05:24 Total Bilirubin 0.6 mg/dl (0.2-1) 11/19/19 05:24 AST 25 U/L (15-37) 11/19/19 05:24 ALT 22 U/L (12-78) 11/19/19 05:24 Alkaline Phosphatase 64 U/L (45-117) 11/19/19 05:24 Total Protein 5.8 gm/dl (6.4-8.2) L 11/19/19 05:24 Albumin 2.8 gm/dl (3.4-5.0) L 11/19/19 05:24 Globulin 3.0 gm/dl (2.5-4.0) 11/19/19 05:24 Albumin/Globulin Ratio 0.9 (0.9-2) 11/19/19 05:24 TSH 0.252 uIu/ml (0.300-4.500) L 11/19/19 05:24 Free T4 2.04 ng/dl (0.8-1.6) H 11/19/19 05:24 Blood Type A Negative 11/16/19 16:39 Antibody Screen NEGATIVE 11/16/19 16:39
--- NOTE | 2019-11-19 11:49 | Ultrasound Report ---
US thyroid CLINICAL HISTORY: hyperthyroid COMPARISON STUDY: No previous studies for comparison. FINDINGS: The right lobe measured 39 x 11 x 12 mm. There is slightly heterogeneous right lobe echotex ture. There is a solid hyperechoic wider than tall circumscribed 8 x 7 x 5 mm lower pole nodule. The left lobe measured 66 x 53 x 34 mm. The lobe was heterogeneous in echotexture. There is a solid m ixed solid and cystic hyperechoic wider than tall left lobe nodule measuring 4.5 cm. There are some c oarse shadowing calcifications present within the left lobe. IMPRESSION: The left lobe of the thyroid appears replaced by a 4.5 cm mixed solid and cystic nodule containing coarse shadowing calcifications. Fine-needle aspiration biopsy is recommended. ACT 112: Negative or not required by law. Electronically signed by: Brad Rodríguez M.D. 11/19/2019 11:48 AM
--- NOTE | 2019-11-19 16:02 | Discharge Summary ---
Date of Service November 19, 2019 Admission HPI Per Admitting Provider This is a 79 yo F with PMHx of mitral valve prolapse, vertigo and scoliosis who presents to [facility] as a direct admission from Dr. Marroquin's office this morning for a Left hip fracture. The patient notes that she fell 7 days ago, and has been functioning at home with the pain and using tylenol routinely. Over the pt had family to visit, when he son arrived home he also brought his dog, who upon entering the home, immediately attacked one of her pet cats. The inciting event occurred on 11/09/19 after springing out of bed to answer the stenotype operator phone call around 5:30am last Tuesday regarding the cat which had not survived the attack, where she acutely became dizzy and fell to the ground. She reports this was exactly like previous episodes of vertigo. She does not take any medications for vertigo, and reports she can normally control it if she just takes a moment to allow the spinning sensation to stop, and then can go about her day. She denies any LOC, hitting her head, or sustaining other injuries. She has been using a walker in her house since the fall to assist her, but prior to this did not require any ambulatory device. she reports her last BM was yesterday but notes that she occasionally sees dark bloody clot pass. She denies BRBPR or other changes in stool. She cannot quantify the amount of blood, this but describes this as occurring as frequent as 1-2x per week. She denies pain with passing bowels and does not need to strain. BM occur every 2-3 days on average for her. She has had a poor appetite in the past week. Pt denies n/v/d/c. She does not take any other medication routinely, and denies significant PMHx other than stated above. She drinks a glass of wine occasionally, and has never smoked. Principal Diagnosis Hip fracture Discharge Exam Constitutional WD/WN, vitals as above Respiratory normal respiratory effort, lungs clear to auscultation Cardiovascular Rate/Rhythm: regular rate and regular rhythm Heart Sounds: + murmur (rusb 3/6) Gastrointestinal (Abdomen) Inspection/Auscultation: abdomen normal to inspection and normal bowel sounds; abdomen not distended Percussion/Palpation: abdomen soft; abdomen nontender Musculoskeletal no cyanosis or clubbing, extremities motor strength 5/5 Skin no rashes, warm and dry Neurologic moves all extremities and awake Psychiatric A+Ox3, euthymic affect Discharge Data Allergies Allergy/AdvReac Type Severity Reaction Status Date / Time Penicillins Allergy Unknown hives and Verified 01/23/15 08:59 swelling Sulfa (Sulfonamide Allergy Unknown hives Verified 01/23/15 08:59 Antibiotics) Consultations 11/16/19 15:06 Consult Case Management - Discharge Planning Routine 11/16/19 15:09 Consult Orthopedic Surgery Routine 11/16/19 16:58 Consult Anesthesiology Routine 11/18/19 08:00 Consult Case Management - Discharge Planning Routine Procedures Performed Operation Date: 11/17/19 12:00 Actual Procedures p Left Total Hip Arthroplasty, Uncemented(Left) - Barney Marroquin DO Ordered Studies 11/19/19 09:19 US thyroid Routine Hospital Course (1) Hip fracture, left: * Occurred 7 days ago following episode of vertigo with fall from standing height when standing quickly. Imaging with displaced left subcapital femoral neck fracture sustained after a fall from standing * s/p LEFT TKA 11/[address] Marroquin. EBL 175mL. * Lovenox SQ for DVT prophylaxis post operatively (2) Scoliosis: * Hx of such, hx of thoracic fusion at age 15 but no other issues. (3) Mitral valve prolapse: * H/o. No medications * ECHO with normal LV size and wall thickness, LVEF 60-65%, normal RV size and function. Trace MR. Mild AR. Normal estimated CVP * ECG NSR with sinus arrhthmia, incomplete RBBB, 76bpm -- unchanged from ECG January 2015 (4) Hematochezia: * hx of intermittent passing of dark red clot with bowels. No history of colonoscopy or FIT testing - patient has not had these symptoms for at least a month * monitor h/h -- currently stable hgb around 10 * No bm since 11/16 which patient reports is normal for her (5) DVT prophylaxis: * teds, scds inpatient * Initiated lovenox following surgery (6) Insomnia: * Ativan prn as above * Vistaril for sleep/anxiety (7) Acute blood loss anemia: Hgb 12.2 and then 10 post op - stable over the last two days (8) Thyroid nodule: Patient with TSH 0.252 and T4 2.04 US thyroid shows 4.5 cm mixed solid and cystic nodule containing coarse shadowing calcifications. Fine-needle aspiration biopsy is recommended. Patient reports history of thyroid nodule which was biopsied years ago Follow up with pcp for further testing and recheck of thyroid function Total Time Total Time Spent Total Time Spent (In Minutes): greater than 30 minutes Discharge Plan Discharge Items Patient Disposition: Home - Home Health Services Reason For Visit: HIP FRACTURE Discharge Diagnosis: Hip fracture with total hip replacement Activity: Per Instructions section Weightbearing: Left weightbearing Weightbearing Comment: as tolerated with walker Non-emergency contact: Surgeon Call non-emergency contact if: your pain is not controlled, your temperature is above 101.5, your wound has increased redness and your wound has increased drainage Follow-up/Referrals: Taras Bustamante III, CRNP [Primary Care Provider] - 11/28/19 9:20 am (A follow- up appt has been made on your behalf at your PCPs office. Please call [facility] office with any questions or concerns. ) Diet: Heart Healthy Felicitas Attending Provider Instructions: (1) Hip fracture with left total hip arthroplasty with Dr. Marroquin Continue Lovenox DVT prophylaxis post operatively. You should call your doctor right away if you fall or hit your head, if you see blood in your stool or black tarry stools, if you develop little red spots on your skin (petechiae), or if you develop excessive bruising. You may bleed more easily. Be careful and avoid injury. Use a soft toothbrush and an electric razor. Do not to take any onuq-ayo-oqhzwkg pain medicine except Tylenol (including aspirin, ibuprofen, Motrin, Aleve, Advil, naproxen, diclofenac sodium, oral Voltaren, also not allowed to take fish oil as all these medications increase your incidence of bleeding) You can take Tylenol as needed for pain but not more than 3000 mg per day as a total dose (that is the maximum of 6 tablet, 500 mg each, divided throughout the day) , if you take more than the total of 3000 mg of Tylenol throughout the day you may damage your liver. Home Health PT/OT to evaluate and treat (2) Thyroid nodule and elevated thyroid function Please follow up with your primary care provider. They may want to re-check labs and further evaluate nodule Addtl Alligator Hunter Provider Instructions: ACTIVITY RECOMMENDATIONS: SELF CARE INSTRUCTIONS AFTER TOTAL HIP REPLACEMENT Until the incision and soft tissues around your hip have healed, there is a possibility that the hip prosthesis could dislocate. A. Observe the following precautions to prevent dislocation: 1. Don't bend your hip greater than 90 degrees. 2. Avoid crossing your legs or ankles while standing or lying. 3. Sit with your feet placed 6 inches apart. 4. When sitting, keep your knees below your hips. Sit on a firm surface, avoid deep, soft chairs and couches. Use an elevated toilet seat in the bathroom. 5. Don't bend over at the waist. Use a long handled shoehorn and a sock aid to help you put on your shoes and socks. A foley artist can help you lease picker objects that are too high or too low to reach. 6. Keep car riding to a minimum for at least one month after surgery. B. Your balance may be shaky for a while. Use crutches or a walker until directed by your doctor. C. Use hand rails when walking on stairs. D. Wear low heeled shoes with non-slip soles. E. Be sure that your floors are free of things that could trip you - throw rugs, electrical cords, small objects. Avoid wet and waxed floors, especially with crutches and canes. F. Try to walk several times a day with rest periods between. G. Continue with all the exercises taught to you in the hospital. Again, make walking a part of your daily routine. SPECIAL CARE INSTRUCTIONS: VERY IMPORTANT TO READ AND REVIEW A. You may still be at risk for phlebitis and blood clots. 1. Wear surgical stockings (NOMAN hose) for 2 weeks after surgery to improve circulation and reduce swelling. 2. Take LOVENOX INJECTIONS for 2- 4 weeks or as directed by your doctor. This is your blood thinner. B. You must take antibiotics before having dental work, bladder, bowel and other surgery. Your doctor will provide you with a permanent card to carry describing precautions. C. Call [facility] if you have a fever, redness or swelling around the incision, cloudy drainage from incision, or sudden increase in pain in your hip, not relieved by your regular pain medication. D. Please call the office at if you have any concerns or questions about your operation or recovery. * YOU MAY SHOWER, NO TUB BATHS UNTIL CLEARED BY YOUR DOCTOR. * WEAR NOMAN HOSE 20 HOURS PER DAY FOR 2 WEEKS. * YOU SHOULD USE A WALKER OR CRUTCHES FOR 2-4 WEEKS. THIS WILL HELP PREVENT STRAIN ON YOUR HIP MUSCLE AND ALLOW IT TO HEAL PROPERLY. YOU MAY WEAN TO A CANE TOLERATED. * MOST PATIENTS WILL HAVE HOME NURSING FOR THERAPY. IF YOU DECIDE TO DO OUTPATIENT PHYSICAL THERAPY, PLEASE SCHEDULE THIS 3 TIMES PER WEEK. * Silverlon- This is a large adhesive bandage that contains silver ions. This helps your incision heal by fighting off bacteria and protecting it from the outside environment. You are permitted to shower with this dressing. This will remain on your incision for 7 days and then should be removed. Some visible blood or drainage through the dressing window is normal. If there is significant drainage or leaking noted before the 7 days notify your doctor's office immediately. Once removed, keep incision clean and dry. If there is any drainage or redness noted, please call your surgeon. . FOLLOW UP VISIT: If appointment is not already scheduled: Please call [facility] to make a follow-up appointment for 2 weeks after your surgery at . Pending Studies at Discharge: No Stand-Alone Forms: [facility] DNA SEQ, Smoking Cessation Medications and DC Order Prescriptions: New enoxaparin [Lovenox] 30 mg/0.3 mL Syringe 30 mg subcut QAM Qty: 30 RF: 0 sennosides [Senokot] 8.6 mg Tablet 17.2 mg PO HS Qty: 30 RF: 0 docusate sodium 100 mg Capsule 100 mg PO BID Qty: 60 RF: 0 oxycodone 5 mg Tablet 5 - 10 mg PO Q4H PRN (Reason: pain) Qty: 20 RF: 0 Continued acetaminophen [Tylenol Extra Strength] 500 mg Tablet 500 mg PO Q6H PRN (Reason: Pain) RF: 0 Discharge Orders: Discharge Order (Routine); Ordered 11/19/19 Ordered By: Eva Bergman/Other Patient Handouts: Enoxaparin Sodium Porcine Solution for injection, Oxycodone Hydrochloride Oral tablet [Abuse Deterrent] Admission Data Admit Date/Time: 11/16/19 14:30 Attending Provider: Henok Deal Admit Provider: Lizbeth Daniel Primary Care Provider: Taras Bustamante III Other Providers: Barney Marroquin ; Acosta Chowdary ; Josie,Home Health Other Interventions: Discharge Summary Assessment (RN) Last Done: 11/19/19 17:05 Supervising Physician Co-Signing Physician Notes I supervised Eva Everett NP on this patient's care. I examined the patient today independently of her. I discussed the plan of care with her with the plan being as written in her note except for any following changes/exceptions: None. No major concerns today. She would like to follow up with her PCP regarding her thyroid issue. She has had it biopsied in the past and has been benign.
[2019-11-19] MEDS: ACETAMINOPHEN 500 MG TAB PO PRN (18:50)
== END 2019-11-19 19:00 | disposition home health service (06) | DRG 470 ==
LOC: SUATTDRO 14:30 → 3N 14:30